=== PATIENT | male | born 1965 | race Caucasian/White ===

== ENCOUNTER 2024-05-28 13:47 | Outpatient (AMB) | payer BC, SELFPAY ==
--- NOTE | 2024-05-28 13:47 | MHC.OFFVIS ---
Vital Signs 05/28/24 13:53 Height 5 ft 6 in Weight 145 lb 2 oz BMI 23.4 BP 142/88 H Blood Pressure Location Rt brachial Position Sitting Pulse 56 Intake Visit Reasons: Hemorrhoids Intake Note: This patient presents for hemorrhoids assessment. Pt c/o; reports no rectal bleeding, pain or constipation. 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 He says that about a month ago keep a he had noticed this hemorrhoids to be swollen and tender. He admits to having some straining before that He did not have any bleeding. He says that he was given some ointment. He says that he has had significant improvement of his symptoms so far. He is up-to-date with his colonoscopies. [facility] Medical History (Updated 05/28/24 @ 13:58 by Behzad Mcdowell MD) Hemorrhoids with complication Surgical History (Updated 05/28/24 @ 13:55 by ANA Barone) No pertinent past surgical history Social History (Updated 05/28/24 @ 13:55 by ANA Barone) Alcohol intake: never Patient Tobacco Use Status: Never used Tobacco Physical Exam Vital Signs: Last Vital Signs Pulse 56 05/28/24 13:53 BP 142/88 H 05/28/24 13:53 BMI result Body Mass Index 23.4 Office Procedures Anoscopy He was in magali-knife position. The anoscope was gently inserted. A full examination of the anal canal was done. Did have mixed internal external hemorrhoids, non bulky. There were no lesions. There was no fissure ulceration. There was no induration. There was no tenderness. There was no bleeding. 21027-Tljdrcor Assessment & Plan Assessment & Plan (1) Hemorrhoids with complication: Code(s): K64.8 - Other hemorrhoids Category: Medical Plan: He does have non bulky internal and external hemorrhoids. He describes these to be bigger and swollen last month. This has improved significantly. I explained to him my findings. I told him that I would not recommend hemorrhoid surgery for now in view of his minimal symptoms. I explained this option to him if his hemorrhoids become problematic down the line. He can therefore come back to the office to be evaluated I had advised him to avoid straining and constipation. Coding Level of Care Code New Pt Level 3 (33009) Diagnoses Hemorrhoids with complication K64.8 CPT Codes Details - CPT: 33252-Ystzddoe ([id number])
[2024-05-28 13:53] VITALS: BP 142/88; PULSE 56; BMI 23.4
== END 2024-05-28 14:05 | disposition home or self-care (01) ==
PROVIDERS: PCP Physician Assistant Medical; Visit Provider Surgery
DX: K64.8 Other hemorrhoids (principal)
CPT/HCPCS: 46600; 99203

== ENCOUNTER → 2024-05-28 13:47 | Outpatient (BNVA) | payer BC, SELFPAY | PROVIDERS: PCP Physician Assistant Medical; Visit Provider Surgery | DX: K64.8 Other hemorrhoids (principal) | CPT/HCPCS: 46600 ==